=== PATIENT | female | born 1975 | race Caucasian/White ===

== ENCOUNTER 2021-07-13 20:08 | Emergency (ER) | payer BC ==
[~2021-07-13] VITALS: Ht 167.6 cm; Wt 76.2 kg
[~2021-07-13 20:08] MED LIST: IBUPROFEN600 MG PO; NORFLEX 100 MG100 MG PO; PREDNISONE 50 M50 MG PO; Voltaren Gel 1 % TOP
[2021-07-14] MEDS ORDERED: ZOFRAN ODT 4 MG4 MG PO (02:01)
[2021-07-14] MEDS ORDERED: LODINE CAP 300300 MG PO (02:01)
== END 2021-07-14 02:36 | disposition home or self-care (01) ==
LOC: ER1 20:08
DX: U07.1 COVID-19 (principal); Z23 Encounter for immunization
CPT/HCPCS: 99283; M0245

== ENCOUNTER 2021-08-31 06:00 | Emergency (ER) | payer BC ==
[~2021-08-31 06:00] MED LIST changes: +LODINE CAP 300300 MG PO; +ZOFRAN ODT 4 MG4 MG PO
[2021-08-31 07:46] LABS: HEMOGLOBIN 13.7 gm/dl (12.3-15.3); RED BLOOD COUNT 4.2 M/UL (4.00-5.10)
[2021-08-31 08:12] LABS: BUN/CREATININE RATIO 11 (0-10)
== END 2021-08-31 08:02 | disposition home or self-care (01) ==
LOC: ER1 06:00
PROVIDERS: Physician Assistant
DX: U07.1 COVID-19 (principal); I44.7 Left bundle-branch block, unspecified; Z88.2 Allergy status to sulfonamides; R07.9 Chest pain, unspecified
CPT/HCPCS: 80053; 82550; 82553; 83874; 84484; 85025; 93005; 99283

== ENCOUNTER → 2021-09-01 | Outpatient (CLI) | payer BC ==
[~2021-09-01] VITALS: Ht 167.6 cm; Wt 76.2 kg
== END ==
LOC: EROP 12:13
DX: U07.1 COVID-19 (principal); Z23 Encounter for immunization; Z79.52 Long term (current) use of systemic steroids; M06.9 Rheumatoid arthritis, unspecified; Z88.2 Allergy status to sulfonamides
CPT/HCPCS: M0247; Q0247

== ENCOUNTER 2021-09-03 09:57 | Emergency (ER) | payer BC ==
[2021-09-03 11:16] LABS: HEMOGLOBIN 14.3 gm/dl (12.3-15.3); RED BLOOD COUNT 4.3 M/UL (4.00-5.10); WHITE BLOOD COUNT 6.6 K/UL (4.5-11.0)
[2021-09-03 11:53] LABS: BUN/CREATININE RATIO 16 (0-10)
== END 2021-09-03 16:00 | disposition home or self-care (01) ==
LOC: ER1 09:57
PROVIDERS: Physician Assistant
DX: U07.1 COVID-19 (principal); R07.9 Chest pain, unspecified; E87.6 Hypokalemia
CPT/HCPCS: 71045; 80053; 82550; 82553; 83874; 84484; 85025; 85379; 93005; 96374; 99285; J1885; Q9967